=== PATIENT | male | born 1965 | race Caucasian/White ===

== ENCOUNTER 2016-10-10 20:51 | Emergency (ER) | payer SELFPAY | END 2016-10-10 22:24 | disposition other institution (70) | LOC: ED 20:51 | DX: Z02.89 Encounter for other administrative examinations (principal) ==

== ENCOUNTER 2017-07-30 19:35 | Inpatient (IN) | payer OTHER ==
[~2017-07-30] VITALS: Ht 175.3 cm; Wt 76.2 kg
[2017-07-30 20:06] VITALS: Ht 175.3 cm; Wt 76.2 kg
[2017-07-31 07:59] LABS: BASOPHIL % 0.6 % (0-2); PLATELET COUNT 294 x10^3mcL (130-400)
[2017-07-31 08:09] LABS: ALKALINE PHOSPHATASE 169 U/L (46-116); ALT/SGPT 237 U/L (16-63); AST/SGOT 192 U/L (15-37); BILIRUBIN TOTAL 0.37 mg/dL (0.20-1.00); CARBON DIOXIDE 26.9 mmol/L (21-32); CHLORIDE SERUM 109 mmol/L (98-107); CREATININE SERUM 1.2 mg/dL (0.7-1.3); GFR1 > 60 mL/min; GLUCOSE SERUM 81 mg/dL (74-106); SODIUM SERUM 144 mmol/L (136-145); TOTAL PROTEIN, SERUM 6.9 g/dL (6.4-8.2)
[2017-07-31 08:22] LABS: CALCIUM 8.4 mg/dL (8.5-10.1)
[2017-07-31 09:17] LABS: AMPHETAMINE QUAL UR POSITIVE (NEG <=1000)
[2017-07-31 12:47] LABS: CHOLESTEROL/HDL RATIO 1.8; MAGNESIUM 1.9 mg/dL (1.8-2.4); PHOSPHOROUS 3.2 mg/dL (2.5-4.9)
[2017-07-31 12:54] LABS: T3 TOTAL 0.87 ng/mL
[2017-07-31 13:02] LABS: FREE T4 0.86 ng/dL (0.76-1.46); FREE THYROXINE INDEX 2.3 ug/dL (1.4-4.5); T4(THYROXINE) 5.7 ug/dL (4.7-13.3)
[2017-07-31 16:13] LABS: AMYLASE 52 U/L (25-115); LIPASE 144 IU/L (73-393)
[2017-08-01 03:36] VITALS: BP 171/110
[2017-08-01 04:06] VITALS: BP 171/110
[2017-08-01 06:42] VITALS: BP 151/84
[2017-08-01 10:45] LABS: BASOPHIL % 0.4 % (0-2); PLATELET COUNT 294 x10^3mcL (130-400); RED CELL DISTRIBUTION WIDTH 14.1 % (11.5-14.5)
[2017-08-01 10:52] LABS: CARBON DIOXIDE 28.8 mmol/L (21-32); CHLORIDE SERUM 104 mmol/L (98-107); CREATININE SERUM 1.1 mg/dL (0.7-1.3); GFR1 > 60 mL/min; GLUCOSE SERUM 187 mg/dL (74-106); PHOSPHOROUS 3.4 mg/dL (2.5-4.9); SODIUM SERUM 139 mmol/L (136-145)
[2017-08-01 11:02] VITALS: BP 146/86
[2017-08-01 17:34] VITALS: BP 136/80
[2017-08-01 22:49] VITALS: BP 178/108
[2017-08-02 06:04] VITALS: BP 151/107
[2017-08-02 07:14] LABS: CARBON DIOXIDE 23.9 mmol/L (21-32); CHLORIDE SERUM 107 mmol/L (98-107); GFR1 > 60 mL/min; GLUCOSE SERUM 98 mg/dL (74-106); POTASSIUM SERUM 4.1 mmol/L (3.5-5.1); SODIUM SERUM 141 mmol/L (136-145)
[2017-08-02 08:37] LABS: BASOPHIL % 0.6 % (0-2); PLATELET COUNT 268 x10^3mcL (130-400); RED CELL DISTRIBUTION WIDTH 14.4 % (11.5-14.5)
[2017-08-02 09:27] VITALS: BP 163/122
[2017-08-02 14:20] VITALS: BP 150/111
[2017-08-02 16:10] VITALS: BP 138/92
[2017-08-02 17:12] VITALS: BP 138/92
[2017-08-03 05:00] VITALS: BP 152/113
[2017-08-03 10:00] VITALS: BP 138/94
[2017-08-03 10:30] VITALS: BP 138/94
[2017-08-03 14:22] LABS: microscopic required? NO
[2017-08-03 15:18] LABS: urine erythrocyte NEGATIVE (NEGATIVE)
[2017-08-03 16:45] LABS: CARBON DIOXIDE 22.2 mmol/L (21-32); CHLORIDE SERUM 107 mmol/L (98-107); CREATININE SERUM 1.1 mg/dL (0.7-1.3); GFR1 > 60 mL/min; GLUCOSE SERUM 100 mg/dL (74-106); POTASSIUM SERUM 4.5 mmol/L (3.5-5.1); SODIUM SERUM 141 mmol/L (136-145)
[2017-08-03 17:22] VITALS: BP 151/106
[2017-08-03 20:44] VITALS: BP 142/93
[2017-08-04 05:44] VITALS: BP 153/106
[2017-08-04 06:46] LABS: CALCIUM 8.6 mg/dL (8.5-10.1); CARBON DIOXIDE 26.4 mmol/L (21-32); CHLORIDE SERUM 105 mmol/L (98-107); CREATININE SERUM 1.1 mg/dL (0.7-1.3); GFR1 > 60 mL/min; GLUCOSE SERUM 94 mg/dL (74-106); POTASSIUM SERUM 4.1 mmol/L (3.5-5.1); SODIUM SERUM 140 mmol/L (136-145)
[2017-08-04 10:22] VITALS: BP 123/84
[2017-08-04 13:59] VITALS: BP 106/86
[2017-08-04 17:57] VITALS: BP 141/89
[2017-08-04 20:50] VITALS: BP 133/92
[2017-08-05 04:59] VITALS: BP 133/87
[2017-08-05 06:48] LABS: CALCIUM 8.5 mg/dL (8.5-10.1); CARBON DIOXIDE 26.1 mmol/L (21-32); CHLORIDE SERUM 105 mmol/L (98-107); CREATININE SERUM 1.1 mg/dL (0.7-1.3); GFR1 > 60 mL/min; GLUCOSE SERUM 88 mg/dL (74-106); POTASSIUM SERUM 3.9 mmol/L (3.5-5.1); SODIUM SERUM 141 mmol/L (136-145)
[2017-08-05 07:46] VITALS: BP 153/102
[2017-08-05 13:22] VITALS: BP 112/78
[2017-08-05 17:57] VITALS: BP 126/83
[2017-08-05 21:43] VITALS: BP 110/59
[2017-08-05 21:59] VITALS: BP 138/88
[2017-08-06 05:34] VITALS: BP 130/85
[2017-08-06 06:35] LABS: CARBON DIOXIDE 24.4 mmol/L (21-32); CHLORIDE SERUM 105 mmol/L (98-107); CREATININE SERUM 1.3 mg/dL (0.7-1.3); GFR1 > 60 mL/min; GLUCOSE SERUM 98 mg/dL (74-106); POTASSIUM SERUM 4.1 mmol/L (3.5-5.1); SODIUM SERUM 140 mmol/L (136-145)
[2017-08-06 10:20] VITALS: BP 131/85
[2017-08-06 17:40] VITALS: BP 132/88
== END 2017-08-06 20:17 | disposition left against medical advice (07) | DRG 816 ==
LOC: ED 19:35 → DU 07-31 10:57 → MU 08-01 12:42 → DU 08-02 00:58 → MU 08-06 09:57 → DU 08-06 11:52 → MU 08-06 17:14
PROVIDERS: Emergency Medicine; Family Medicine; Student in an Organized Health Care Education/Training Program
DX: T51.0X1A Toxic effect of ethanol, accidental (unintentional), initial encounter (principal); N17.0 Acute kidney failure with tubular necrosis; G92 Toxic encephalopathy; E44.0 Moderate protein-calorie malnutrition; F33.3 Major depressive disorder, recurrent, severe with psychotic symptoms; R45.851 Suicidal ideations; F10.229 Alcohol dependence with intoxication, unspecified; F10.239 Alcohol dependence with withdrawal, unspecified; I16.0 Hypertensive urgency; I10 Essential (primary) hypertension; B18.2 Chronic viral hepatitis C; F15.129 Other stimulant abuse with intoxication, unspecified; F12.129 Cannabis abuse with intoxication, unspecified; F17.210 Nicotine dependence, cigarettes, uncomplicated; Z68.23 Body mass index [BMI] 23.0-23.9, adult; Z91.14 Patient's other noncompliance with medication regimen; Y90.6 Blood alcohol level of 120-199 mg/100 ml; Y92.009 Unspecified place in unspecified non-institutional (private) residence as the place of occurrence of the external cause
CPT/HCPCS: 83880; 84439; G0480; J0360; J2060; J3490; J7030; Q0092; Q0162